=== PATIENT | male | born 1950 | race Two or more races ===

== ENCOUNTER 2023-03-20 18:55 | Inpatient (IN) | payer MEDICARE, BC ==
[~2023-03-20] VITALS: Ht 177.8 cm; Wt 101.2 kg
[2023-03-20 20:00] VITALS: BP 109/65; PULSE 72; RESP 20; TEMP 97.6
[2023-03-20] MEDS ORDERED: ONDANSETRON HCL 4MG/2ML INJ IV PRN (20:30)
[2023-03-20] MEDS ORDERED: LEVETIRACETAM 500 MG in SODIUM CHLORIDE 0.9% 100 ML IV SCH (20:30)
[2023-03-20] MEDS ORDERED: ACETAMINOPHEN 650MG SUPP PR PRN (20:30)
[2023-03-20] MEDS: AMLODIPINE 5MG TABLET PO SCH ×2 (20:52→21:00)
[2023-03-20] MEDS: LEVETIRACETAM 500MG PREMIX 100 ML IV SCH (20:55)
[2023-03-20] MEDS: ATORVASTATIN CALCIUM 20MG TABLET PO SCH (21:00)
[2023-03-20 21:01] VITALS: BP 109/65; PULSE 72; RESP 20; TEMP 97.6
[2023-03-21 08:00] VITALS: BP 146/77; PULSE 101; RESP 18; TEMP 97.5
[2023-03-21] MEDS: LEVETIRACETAM 500MG PREMIX 100 ML IV SCH ×2 (08:12→20:48)
[2023-03-21] MEDS: AMLODIPINE 5MG TABLET PO SCH ×2 (08:12→20:49)
[2023-03-21 08:29] LABS: BASOPHILS % 0.3 % (0.0-2.0); EOSINOPHILS % 3.1 % (0.0-5.0); HEMATOCRIT. 45.4 % (42.0-52.0); HEMOGLOBIN. 15.5 g/dL (14.0-18.0); LYMPHOCYTES % 24.1 % (20.0-50.0); MEAN CORPUSCULAR HEMOGLOBIN 30.9 pg (28.0-32.0); MEAN CORPUSCULAR HGB CONC 34.2 g/dL (31.0-37.0); MEAN CORPUSCULAR VOLUME 90.5 fL (80.0-94.0); MEAN PLATELET VOLUME 7.4 fl (7.4-10.4); MONOCYTES % 9.8 % (2.0-8.0); NEUTROPHILS % 62.7 % (40.0-76.0); PLATELET 239 x1000/uL (130-400); RED BLOOD CELL COUNT 5.02 mill/uL (4.7-6.1); RED CELL DISTRIBUTION WIDTH 14.7 % (11.6-14.6); WHITE BLOOD COUNT 5.9 x1000/uL (4.5-11.0)
[2023-03-21 08:56] LABS: CHLORIDE 105 mEq/L (98-107); INDEX HEMOLYSI 2 (1-3); INDEX ICTERIC 1 (1-4); INDEX LIPEMIC 1 (1-3); POTASSIUM 3.9 mEq/L (3.5-5.1); SODIUM 139 mEq/L (136-145)
[2023-03-21] MEDS ORDERED: AZITHROMYCIN 500 MG TABLET PO SCH (09:00)
[2023-03-21 09:04] LABS: ALANINE AMINOTRANSFERASE 33 IU/L (13-61); ALBUMIN 3.3 g/dL (3.4-5.0); ASPARTATE AMINOTRANSFERASE 24 IU/L (15-37); BILIRUBIN TOTAL 0.8 mg/dL (0.1-1.0); CALCIUM 8.7 mg/dL (8.5-10.1); CARBON DIOXIDE 28 mEq/L (21-32); GLUCOSE 103 mg/dL (70-105); PROTEIN TOTAL 6.5 g/dL (6.0-8.3); UREA NITROGEN BLOOD 17 mg/dL (7-21)
[2023-03-21 19:45] VITALS: BP 131/79; PULSE 90; RESP 20; TEMP 97.1
[2023-03-21] MEDS: ATORVASTATIN CALCIUM 20MG TABLET PO SCH (20:49)
[2023-03-22] MEDS: AMLODIPINE 5MG TABLET PO SCH ×2 (07:42→21:17)
[2023-03-22] MEDS: LEVETIRACETAM 500MG PREMIX 100 ML IV SCH ×2 (07:42→21:16)
[2023-03-22 08:00] VITALS: BP 116/68; PULSE 77; RESP 18; TEMP 97.6
[2023-03-22] MEDS: ATORVASTATIN CALCIUM 20MG TABLET PO SCH (21:16)
[2023-03-23 08:00] VITALS: BP 115/72; PULSE 81; RESP 18; TEMP 97.6
[2023-03-23] MEDS: AMLODIPINE 5MG TABLET PO SCH ×2 (09:00→21:20)
[2023-03-23] MEDS: LEVETIRACETAM 500MG PREMIX 100 ML IV SCH ×2 (09:00→21:20)
[2023-03-23 20:00] VITALS: BP 117/60; PULSE 83; RESP 18; TEMP 98.2
[2023-03-23] MEDS: ATORVASTATIN CALCIUM 20MG TABLET PO SCH (21:20)
[2023-03-24 08:00] VITALS: BP 113/79; PULSE 99; RESP 18; TEMP 97.6
[2023-03-24] MEDS: LEVETIRACETAM 500MG PREMIX 100 ML IV SCH (09:50)
[2023-03-24] MEDS: AMLODIPINE 5MG TABLET PO SCH ×2 (10:37→20:48)
[2023-03-24 20:00] VITALS: BP 135/75; PULSE 85; RESP 19; TEMP 97.7
[2023-03-24] MEDS: LEVETIRACETAM 500MG TABLET PO SCH (20:48)
[2023-03-24] MEDS: ATORVASTATIN CALCIUM 20MG TABLET PO SCH (20:48)
[2023-03-24] MEDS ORDERED: PREG75CA76 PO (22:31)
[2023-03-24] MEDS ORDERED: HYDR-3782 PO (22:31)
[2023-03-24] MEDS ORDERED: ATOR40TA70 PO (22:31)
[2023-03-25 08:00] VITALS: BP 132/67; PULSE 77; RESP 18; TEMP 97.7
[2023-03-25] MEDS: LEVETIRACETAM 500MG TABLET PO SCH ×2 (10:20→22:20)
[2023-03-25] MEDS: AMLODIPINE 5MG TABLET PO SCH ×2 (10:21→22:20)
[2023-03-25] MEDS ORDERED: ONDANSETRON 4MG ODT PO PRN (14:43)
[2023-03-25 20:00] VITALS: BP 114/65; PULSE 80; RESP 17; TEMP 97.7
[2023-03-25] MEDS: ATORVASTATIN CALCIUM 20MG TABLET PO SCH (22:19)
[2023-03-26 08:00] VITALS: BP 142/89; PULSE 83; RESP 18; TEMP 97.7
[2023-03-26] MEDS: LEVETIRACETAM 500MG TABLET PO SCH ×2 (08:51→21:50)
[2023-03-26] MEDS: AMLODIPINE 5MG TABLET PO SCH ×3 (08:51→22:36)
[2023-03-26 20:00] VITALS: BP 117/66; PULSE 75; RESP 18; TEMP 98.2
[2023-03-26] MEDS: ATORVASTATIN CALCIUM 20MG TABLET PO SCH (21:49)
[2023-03-27] MEDS: LEVETIRACETAM 500MG TABLET PO SCH (08:48)
[2023-03-27] MEDS: AMLODIPINE 5MG TABLET PO SCH (08:49)
== END 2023-03-27 12:44 | disposition home health service (06) | DRG 65 ==
PROVIDERS: ADMIT Psychiatry & Neurology Neurology; ATTEND Hospitalist
DX: I61.1 Nontraumatic intracerebral hemorrhage in hemisphere, cortical (principal); E44.1 Mild protein-calorie malnutrition; E85.4 Organ-limited amyloidosis; R26.9 Unspecified abnormalities of gait and mobility; I10 Essential (primary) hypertension; I68.0 Cerebral amyloid angiopathy; M21.371 Foot drop, right foot; Z91.81 History of falling; Z96.659 Presence of unspecified artificial knee joint; E78.00 Pure hypercholesterolemia, unspecified; F39 Unspecified mood [affective] disorder; R26.2 Difficulty in walking, not elsewhere classified; Z68.32 Body mass index [BMI] 32.0-32.9, adult; Z79.899 Other long term (current) drug therapy
CPT/HCPCS: 36415; 80053; 85025; 92523; 92610; 93970; 97110; 97116; 97162; 97166; 97530; 97535; A6261; J1953

== ENCOUNTER → 2023-05-20 | Outpatient (CLI) | payer MEDICARE, BC ==
[~2023-05-20] MED LIST: ATOR40TA70 PO; HYDR-3782 PO; PREG75CA76 PO
== END | disposition home or self-care (01) ==
LOC: CT 10:42
PROVIDERS: ATTEND Internal Medicine Critical Care Medicine
DX: G31.9 Degenerative disease of nervous system, unspecified (principal); I61.9 Nontraumatic intracerebral hemorrhage, unspecified; R90.82 White matter disease, unspecified

== ENCOUNTER → 2024-03-24 | Outpatient (CLI) | payer MEDICARE, BC | END | disposition home or self-care (01) | LOC: CT 10:47 | PROVIDERS: ATTEND Psychiatry & Neurology Neurology | DX: I67.82 Cerebral ischemia (principal); R90.82 White matter disease, unspecified; I10 Essential (primary) hypertension; G31.9 Degenerative disease of nervous system, unspecified ==